=== PATIENT | male | born 2000 | race Caucasian/White ===

== ENCOUNTER 2025-01-12 20:11 | Observation (INO) | payer BC, OTHER ==
[2025-01-12 20:45] LABS: Glucose,Whole Blood >600 mg/dL (70-110)
--- NOTE | 2025-01-12 21:07 | ED ---
General Adult HPI - General Chief complaint: Nausea/Vomiting/Diarrhea Stated complaint: Lethargic,vomiting Time Seen by Provider: 01/12/25 21:05 Source: patient, family, RN notes reviewed Mode of arrival: ambulatory Limitations: no limitations - History of Present Illness Initial comments: 24-year-old male presents to the emergency department for evaluation of nausea and vomiting. Patient notes that symptoms started yesterday. He notes that he has insulin pump was not working appropriately yesterday. He has had high blood sugar readings today. He denies any fever, chills or recent illness. He does endorse nausea and vomiting. He notes feeling weak. Patient endorses palpitations. - Related Data Previous Rx's Medication Instructions Recorded INSULIN LISPRO (HumaLOG) [HumaLOG] 4 unit SQ AC-TID #2 pen 01/13/25 Insulin Glargine (Lantus) [Lantus 12 unit SQ HS #2 pen 01/13/25 Vial] Allergies Allergy/AdvReac Type Severity Reaction Status Date / Time Penicillins Allergy Anaphylaxis Verified 01/13/25 07:51 Review of Systems ROS Statement: Those systems with pertinent positive or pertinent negative responses have been documented in the HPI. ROS Other: All systems not noted in ROS Statement are negative. Past Medical History Past Medical History: Diabetes Mellitus Additional Past Medical History / Comment(s): type 1 DM,insulin pump Past Surgical History: Orthopedic Surgery Past Psychological History: No Psychological Hx Reported Smoking Status: Never smoker Past Alcohol Use History: Occasional Past Drug Use History: None Reported General Exam Limitations: no limitations General appearance: alert, in no apparent distress Head exam: Present: atraumatic, normocephalic, normal inspection Eye exam: Present: normal appearance, PERRL, EOMI. Absent: scleral icterus, conjunctival injection, periorbital swelling ENT exam: Present: mucous membranes dry Respiratory exam: Present: normal lung sounds bilaterally, other (tachypneic). Absent: respiratory distress, wheezes, rales, rhonchi, stridor Cardiovascular Exam: Present: regular rate, normal rhythm, normal heart sounds. Absent: systolic murmur, diastolic murmur, rubs, gallop, clicks GI/Abdominal exam: Present: soft, normal bowel sounds. Absent: distended, tenderness, guarding, rebound, rigid Extremities exam: Present: normal inspection, full ROM, normal capillary refill. Absent: tenderness, pedal edema, joint swelling, calf tenderness Neurological exam: Present: alert, oriented X3 Psychiatric exam: Present: normal affect, normal mood Course Vital Signs 01/12/25 01/12/25 01/12/25 20:40 21:23 23:00 Temperature 97.5 F L 98.2 F Pulse Rate 142 H 114 H 112 H Respiratory 18 20 18 Rate Blood Pressure 128/81 133/81 116/78 O2 Sat by Pulse 97 99 100 Oximetry 01/13/25 01/13/25 01/13/25 01:00 02:00 03:45 Temperature 98.8 F Pulse Rate 104 H 109 H 104 H Respiratory 18 18 Rate Blood Pressure 118/77 113/73 115/67 O2 Sat by Pulse 100 100 98 Oximetry 01/13/25 01/13/25 01/13/25 04:00 05:00 06:00 Temperature 98.3 F Pulse Rate 105 H 105 H 96 Respiratory 16 Rate Blood Pressure 105/63 112/67 99/65 O2 Sat by Pulse 98 99 99 Oximetry 01/13/25 01/13/25 01/13/25 11:06 13:49 16:43 Temperature 98.1 F Pulse Rate 86 87 84 Respiratory 22 18 20 Rate Blood Pressure 107/69 109/68 118/68 O2 Sat by Pulse 98 97 Oximetry Medical Decision Making - Medical Decision Making Was pt. sent in by a medical professional or institution (HIRO Mathis, [employer]STATE E[employer]OMIST, urgent care, hospital, or alf...) When possible be specific @ -No Did you speak to anyone other than the patient for history (EMS, parent, family, police, friend...)? What history was obtained from this source @ -Patient's father provided some history of this patient Did you review nursing and triage notes (agree or disagree)? Why? @ -I reviewed and agree with nursing and triage notes Were old charts reviewed (outside hosp., previous admission, EMS record, old EKG, old radiological studies, urgent care reports/EKG's, alf records)? Report findings @ -No old charts were reviewed Differential Diagnosis (chest pain, altered mental status, abdominal pain women, abdominal pain men, vaginal bleeding, weakness, fever, dyspnea, syncope, headache, dizziness, GI bleed, back pain, seizure, CVA, palpatations, mental health, musculoskeletal)? @ -Differential Weakness: Hypoglycemia, shock, sepsis, hyponatremia, anemia, infection, GA, ETOH, adverse medicine reaction, overdose, stroke, this is not meant to be an all-inclusive list. EKG interpreted by me (3pts min.). @ -EKG@2057 shows sinus tachycardia rate of 126, NC 111, QRS 78, QT/QTc 079147 X-rays interpreted by me (1pt min.). @ -Chest x-ray reveals no acute process CT interpreted by me (1pt min.). @ -None done U/S interpreted by me (1pt. min.). @ -None done What testing was considered but not performed or refused? (CT, X-rays, U/S, labs)? Why? @ -None What meds were considered but not given or refused? Why? @ -None Did you discuss the management of the patient with other professionals (professionals i.e. , PA, REAL ESTATE ECONOMIST, lab, RT, psych nurse, social worker health services, twisting department end finder, teacher, network security officer, therapeutic case manager)? Give summary @ -Management discussed with [facility] by my attending physician Was smoking cessation discussed for >3mins.? @ -No Was critical care preformed (if so, how long)? @ -Yes 35 minutes Were there social determinants of health that impacted care today? How? (Homelessness, low income, unemployed, alcoholism, drug addiction, transportation, low edu. Level, literacy, decrease access to med. care, retirement, rehab)? @ -No Was there de-escalation of care discussed even if they declined (Discuss DNR or withdrawal of care, Hospice)? DNR status @ -No What co-morbidities impacted this encounter? (DM, HTN, Smoking, COPD, CAD, Cancer, CVA, ARF, Chemo, Hep., AIDS, mental health diagnosis, sleep apnea, morbid obesity)? @ -Diabetes mellitus Was patient admitted / discharged? Hospital course, mention meds given and route, prescriptions, significant lab abnormalities, going to OR and other pertinent info. @ -Admitted patient presented to the emergency department for nausea, vomiting, generalized malaise. Patient has a history of type 1 diabetes. Notes that his insulin pump was malfunctioning today. Laboratory studies were obtained which revealed WBC of 28; venous blood gas reveals a pH of 7.09, bicarb of 8. Patient has a sodium 132, potassium 6.1 patient was provided 2 L of lactated Ringer's and started on insulin drip UA shows 4+ glucose, 4+ ketones. Patient did have positive acetone. Electrolyte imbalances improved following fluid and insulin administration. Patient will be admitted to the hospital for DKA. Case discussed with Dr. Lombardi Undiagnosed new problem with uncertain prognosis? @ -No Drug Therapy requiring intensive monitoring for toxicity (Heparin, Nitro, Insuli n, Cardizem)? @ -Insulin drip Were any procedures done? @ -No Diagnosis/symptom? @ -DKA Acute, or Chronic, or Acute on Chronic? @ -Acute Uncomplicated (without systemic symptoms) or Complicated (systemic symptoms)? @ -Complicated Side effects of treatment? @ -No Exacerbation, Progression, or Severe Exacerbation? @ -No Poses a threat to life or bodily function? How? (Chest pain, USA, GA, pneumonia, PE, COPD, DKA, ARF, appy, cholecystitis, CVA, Diverticulitis, Homicidal, Suicidal, threat to staff... and all critical care pts) @ -Yes DKA - Lab Data Result diagrams: 01/12/25 22:25 01/13/25 07:47 Lab Results 01/12/25 01/12/25 01/12/25 Range/Units 20:39 22:10 22:25 WBC 28.81 H (4.50-10.00) 10*3/uL RBC 5.59 (4.40-5.60) 10*6/uL Hgb 16.2 (13.0-17.0) g/dL Hct 48.7 (39.6-50.0) % MCV 87.1 (80.0-97.0) fL MCH 29.0 (27.0-32.0) pg MCHC 33.3 (32.0-37.0) g/dL Plt Count 328 (140-440) 10*3/uL MPV 10.6 (9.5-12.2) fL Immature Gran % (Auto) 1.0 % Neutrophils % 86.8 % Lymphocytes % 7.0 % Monocytes % 5.0 % Eosinophils % 0.0 % Basophils % 0.2 % Immature Gran # 0.30 H (0.00-0.04) 10*3/uL Neutrophils # 24.97 H (1.80-7.70) 10*3/uL Lymphocytes # 2.03 (0.90-5.00) 10*3/uL Monocytes # 1.45 H (0.20-1.00) 10*3/uL Eosinophils # 0.01 L (0.04-0.35) 10*3/uL Basophils # 0.05 (0.00-0.10) 10*3/uL Manual Slide Review Performed RBC Morphology Normal VBG pH (7.31-7.41) VBG pCO2 (37-51) mmHg VBG HCO3 (24-28) mmol/L Sodium (137-145) mmol/L Potassium (3.5-5.1) mmol/L Chloride (98-107) mmol/L Carbon Dioxide (22-30) mmol/L Anion Gap mmol/L BUN (9-20) mg/dL Creatinine (0.66-1.25) mg/dL Est GFR (CKD-EPI)AfAm (>60 ml/min/1.73 sqM) Est GFR (CKD-EPI)NonAf (>60 ml/min/1.73 sqM) Glucose (74-99) mg/dL POC Glucose (mg/dL) >600 H* (70-110) mg/dL POC Glu Dispatcher Radioactive Waste Disposal ID Hough Chante Calcium (8.4-10.2) mg/dL Phosphorus (2.5-4.5) mg/dL Magnesium (1.6-2.3) mg/dL Total Bilirubin (0.2-1.3) mg/dL AST (17-59) U/L ALT (4-49) U/L Alkaline Phosphatase (38-126) U/L Total Protein (6.3-8.2) g/dL Albumin (3.5-5.0) g/dL Amylase (30-110) U/L Lipase (23-300) U/L Urine Color Colorless Urine Appearance Clear (Clear) Urine pH 5.0 (5.0-8.0) Ur Specific [place] 1.021 (1.001-1.035) Urine Protein Negative (Negative) Urine Glucose (UA) 4+ H (Negative) Urine Ketones 4+ H (Negative) Urine Blood Negative (Negative) Urine Nitrite Negative (Negative) Urine Bilirubin Negative (Negative) Urine Urobilinogen <2.0 (<2.0) mg/dL Ur Leukocyte Esterase Negative (Negative) Acetone, Qual (Negative) 01/12/25 01/12/25 01/13/25 Range/Units 22:25 22:25 00:40 WBC (4.50-10.00) 10*3/uL RBC (4.40-5.60) 10*6/uL Hgb (13.0-17.0) g/dL Hct (39.6-50.0) % MCV (80.0-97.0) fL MCH (27.0-32.0) pg MCHC (32.0-37.0) g/dL Plt Count (140-440) 10*3/uL MPV (9.5-12.2) fL Immature Gran % (Auto) % Neutrophils % % Lymphocytes % % Monocytes % % Eosinophils % % Basophils % % Immature Gran # (0.00-0.04) 10*3/uL Neutrophils # (1.80-7.70) 10*3/uL Lymphocytes # (0.90-5.00) 10*3/uL Monocytes # (0.20-1.00) 10*3/uL Eosinophils # (0.04-0.35) 10*3/uL Basophils # (0.00-0.10) 10*3/uL Manual Slide Review RBC Morphology VBG pH 7.09 L* (7.31-7.41) VBG pCO2 26 L (37-51) mmHg VBG HCO3 8 L* (24-28) mmol/L Sodium 132 L (137-145) mmol/L Potassium 6.1 H* (3.5-5.1) mmol/L Chloride 94 L (98-107) mmol/L Carbon Dioxide <5 L* (22-30) mmol/L Anion Gap mmol/L BUN 27 H (9-20) mg/dL Creatinine 1.42 H (0.66-1.25) mg/dL Est GFR (CKD-EPI)AfAm 80 (>60 ml/min/1.73 sqM) Est GFR (CKD-EPI)NonAf 69 (>60 ml/min/1.73 sqM) Glucose 634 H* (74-99) mg/dL POC Glucose (mg/dL) 456 H (70-110) mg/dL POC Glu Dispatcher Radioactive Waste Disposal ID [place] Calcium 10.0 (8.4-10.2) mg/dL Phosphorus 8.6 H (2.5-4.5) mg/dL Magnesium 2.2 (1.6-2.3) mg/dL Total Bilirubin 0.9 (0.2-1.3) mg/dL AST 33 (17-59) U/L ALT 26 (4-49) U/L Alkaline Phosphatase 148 H (38-126) U/L Total Protein 8.1 (6.3-8.2) g/dL Albumin 5.1 H (3.5-5.0) g/dL Amylase 75 (30-110) U/L Lipase 236 (23-300) U/L Urine Color Urine Appearance (Clear) Urine pH (5.0-8.0) Ur Specific [place] (1.001-1.035) Urine Protein (Negative) Urine Glucose (UA) (Negative) Urine Ketones (Negative) Urine Blood (Negative) Urine Nitrite (Negative) Urine Bilirubin (Negative) Urine Urobilinogen (<2.0) mg/dL Ur Leukocyte Esterase (Negative) Acetone, Qual Positive (Negative) 01/13/25 01/13/25 01/13/25 Range/Units 01:51 02:52 03:32 WBC (4.50-10.00) 10*3/uL RBC (4.40-5.60) 10*6/uL Hgb (13.0-17.0) g/dL Hct (39.6-50.0) % MCV (80.0-97.0) fL MCH (27.0-32.0) pg MCHC (32.0-37.0) g/dL Plt Count (140-440) 10*3/uL MPV (9.5-12.2) fL Immature Gran % (Auto) % Neutrophils % % Lymphocytes % % Monocytes % % Eosinophils % % Basophils % % Immature Gran # (0.00-0.04) 10*3/uL Neutrophils # (1.80-7.70) 10*3/uL Lymphocytes # (0.90-5.00) 10*3/uL Monocytes # (0.20-1.00) 10*3/uL Eosinophils # (0.04-0.35) 10*3/uL Basophils # (0.00-0.10) 10*3/uL Manual Slide Review RBC Morphology VBG pH (7.31-7.41) VBG pCO2 (37-51) mmHg VBG HCO3 (24-28) mmol/L Sodium (137-145) mmol/L Potassium (3.5-5.1) mmol/L Chloride (98-107) mmol/L Carbon Dioxide (22-30) mmol/L Anion Gap mmol/L BUN (9-20) mg/dL Creatinine (0.66-1.25) mg/dL Est GFR (CKD-EPI)AfAm (>60 ml/min/1.73 sqM) Est GFR (CKD-EPI)NonAf (>60 ml/min/1.73 sqM) Glucose (74-99) mg/dL POC Glucose (mg/dL) 360 H 291 H (70-110) mg/dL POC Glu Dispatcher Radioactive Waste Disposal ID [id number] HELMS Calcium (8.4-10.2) mg/dL Phosphorus 3.1 (2.5-4.5) mg/dL Magnesium (1.6-2.3) mg/dL Total Bilirubin (0.2-1.3) mg/dL AST (17-59) U/L ALT (4-49) U/L Alkaline Phosphatase (38-126) U/L Total Protein (6.3-8.2) g/dL Albumin (3.5-5.0) g/dL Amylase (30-110) U/L Lipase (23-300) U/L Urine Color Urine Appearance (Clear) Urine pH (5.0-8.0) Ur Specific [place] (1.001-1.035) Urine Protein (Negative) Urine Glucose (UA) (Negative) Urine Ketones (Negative) Urine Blood (Negative) Urine Nitrite (Negative) Urine Bilirubin (Negative) Urine Urobilinogen (<2.0) mg/dL Ur Leukocyte Esterase (Negative) Acetone, Qual (Negative) 01/13/ Range/Units 03:32 WBC (4.50-10.00) 10*3/uL RBC (4.40-5.60) 10*6/uL Hgb (13.0-17.0) g/dL Hct (39.6-50.0) % MCV (80.0-97.0) fL MCH (27.0-32.0) pg MCHC (32.0-37.0) g/dL Plt Count (140-440) 10*3/uL MPV (9.5-12.2) fL Immature Gran % (Auto) % Neutrophils % % Lymphocytes % % Monocytes % % Eosinophils % % Basophils % % Immature Gran # (0.00-0.04) 10*3/uL Neutrophils # (1.80-7.70) 10*3/uL Lymphocytes # (0.90-5.00) 10*3/uL Monocytes # (0.20-1.00) 10*3/uL Eosinophils # (0.04-0.35) 10*3/uL Basophils # (0.00-0.10) 10*3/uL Manual Slide Review RBC Morphology VBG pH (7.31-7.41) VBG pCO2 (37-51) mmHg VBG HCO3 (24-28) mmol/L Sodium 135 L (137-145) mmol/L Potassium 4.6 (3.5-5.1) mmol/L Chloride 105 (98-107) mmol/L Carbon Dioxide 12 L (22-30) mmol/L Anion Gap 18 mmol/L BUN 22 H (9-20) mg/dL Creatinine 0.89 (0.66-1.25) mg/dL Est GFR (CKD-EPI)AfAm >90 (>60 ml/min/1.73 sqM) Est GFR (CKD-EPI)NonAf >90 (>60 ml/min/1.73 sqM) Glucose 277 H (74-99) mg/dL POC Glucose (mg/dL) (70-110) mg/dL POC Glu Dispatcher Radioactive Waste Disposal ID Calcium (8.4-10.2) mg/dL Phosphorus (2.5-4.5) mg/dL Magnesium (1.6-2.3) mg/dL Total Bilirubin (0.2-1.3) mg/dL AST (17-59) U/L ALT (4-49) U/L Alkaline Phosphatase (38-126) U/L Total Protein (6.3-8.2) g/dL Albumin (3.5-5.0) g/dL Amylase (30-110) U/L Lipase (23-300) U/L Urine Color Urine Appearance (Clear) Urine pH (5.0-8.0) Ur Specific [place] (1.001-1.035) Urine Protein (Negative) Urine Glucose (UA) (Negative) Urine Ketones (Negative) Urine Blood (Negative) Urine Nitrite (Negative) Urine Bilirubin (Negative) Urine Urobilinogen (<2.0) mg/dL Ur Leukocyte Esterase (Negative) Acetone, Qual (Negative) Disposition Clinical Impression: DKA (diabetic ketoacidosis) Disposition: ADMITTED IP TO THIS [facility] Condition: Stable Is patient prescribed a controlled substance at d/c from ED?: No
[2025-01-12] MEDS: LACTATED RINGERS 1,000 ML IV SCH (21:39)
[2025-01-12 22:59] LABS: VBG PH 7.09 (7.31-7.41)
[2025-01-12 23:21] LABS: Basophils # (A) 0.05 10*3/uL (0.00-0.10); Basophils % (A) 0.2 %; Eosinophils # (A) 0.01 10*3/uL (0.04-0.35); HCT 48.7 % (39.6-50.0); HGB 16.2 g/dL (13.0-17.0); Lymphocytes # (A) 2.03 10*3/uL (0.90-5.00); MCHC 33.3 g/dL (32.0-37.0); MCV 87.1 fL (80.0-97.0); Mean Platelet Volume 10.6 fL (9.5-12.2); Monocytes # (A) 1.45 10*3/uL (0.20-1.00); Neutrophils # (A) 24.97 10*3/uL (1.80-7.70); Neutrophils % (A) 86.8 %; Platelet Count 328 10*3/uL (140-440); RBC 5.59 10*6/uL (4.40-5.60); RDW 12.4 % (11.5-14.5); WBC 28.81 10*3/uL (4.50-10.00)
[2025-01-12 23:36] LABS: ALT 26 U/L (4-49); African American GFR (CKD) 80 (>60 ml/min/1.73 sqM); Albumin 5.1 g/dL (3.5-5.0); Alkaline Phosphatase 148 U/L (38-126); Blood Urea Nitrogen 27 mg/dL (9-20); Chloride 94 mmol/L (98-107); Lipase 236 U/L (23-300); Non-African American GFR(CKD) 69 (>60 ml/min/1.73 sqM); Sodium 132 mmol/L (137-145); Total Bilirubin 0.9 mg/dL (0.2-1.3); Total Protein 8.1 g/dL (6.3-8.2)
[2025-01-12 23:47] LABS: AST 33 U/L (17-59); Amylase 75 U/L (30-110); Carbon Dioxide <5 mmol/L (22-30); Magnesium 2.2 mg/dL (1.6-2.3); Phosphorus 8.6 mg/dL (2.5-4.5); Potassium 6.1 mmol/L (3.5-5.1)
[2025-01-12 23:51] LABS: Glucose 634 mg/dL (74-99)
[2025-01-12 23:54] LABS: RBC Morphology Normal
[2025-01-13 00:41] LABS: Glucose,Whole Blood 456 mg/dL (70-110)
[2025-01-13] MEDS: INSULIN REGULAR 100 UNIT in SODIUM CHLORIDE 0.9% 100 ML IV SCH (00:53)
[2025-01-13] MEDS: SODIUM CHLORIDE 0.9% 1,000 ML IV SCH ×3 (01:01→14:48)
[2025-01-13 01:53] LABS: Glucose,Whole Blood 360 mg/dL (70-110)
[2025-01-13 02:05] LABS: Appearance,Urine Clear (Clear); Bilirubin,Urine Negative (Negative); Blood,Urine Negative (Negative); Color,Urine Colorless; Glucose,Urine (UA) 4+ (Negative); Leukocyte Esterase,Urine Negative (Negative); Nitrite,Urine Negative (Negative); Protein,Urine Negative (Negative); Specific Gravity,Urine 1.021 (1.001-1.035); Urobilinogen,Urine <2.0 mg/dL (<2.0)
[2025-01-13] MEDS: LACTATED RINGERS 1,000 ML IV SCH (02:18)
[2025-01-13 02:54] LABS: Glucose,Whole Blood 291 mg/dL (70-110)
[2025-01-13 03:07] LABS: Ketones,Urine 4+ (Negative)
--- NOTE | 2025-01-13 03:20 | XR ---
EXAM: XR Chest, 2 Views CLINICAL HISTORY: c/o N/V and hyperglycemia. Hx of type 1 DM. Pt's insulin pump malfunctioning today. Pt's pump turned off and disconnected in triage TECHNIQUE: Frontal and lateral views of the chest. COMPARISON: No relevant prior studies available. FINDINGS: Lungs: Unremarkable. No consolidation. Pleural space: Unremarkable. Mediastinum: Unremarkable. Normal mediastinal contour. Bones/joints: No acute findings. IMPRESSION: No acute findings.
[2025-01-13] MEDS: D5-0.45% NACL WITH KCL 20MEQ/L 1,000 ML IV SCH (03:41)
[2025-01-13 03:54] LABS: Glucose,Whole Blood 237 mg/dL (70-110)
[2025-01-13 04:07] LABS: African American GFR (CKD) >90 (>60 ml/min/1.73 sqM); Anion Gap 18 mmol/L; Blood Urea Nitrogen 22 mg/dL (9-20); Carbon Dioxide 12 mmol/L (22-30); Chloride 105 mmol/L (98-107); Glucose 277 mg/dL (74-99); Non-African American GFR(CKD) >90 (>60 ml/min/1.73 sqM); Potassium 4.6 mmol/L (3.5-5.1); Sodium 135 mmol/L (137-145)
[2025-01-13] MEDS ORDERED: MORPHINE SULFATE 4 MG/ML SYRINGE IV PRN (04:36)
[2025-01-13] MEDS ORDERED: ONDANSETRON 4 MG/2 ML VIAL IVP PRN (04:36)
[2025-01-13] MEDS ORDERED: NALOXONE 0.4 MG/ML 1 ML VIAL IV PRN (04:36)
[2025-01-13 04:57] LABS: Glucose,Whole Blood 223 mg/dL (70-110)
[2025-01-13 05:57] LABS: Glucose,Whole Blood 184 mg/dL (70-110)
[2025-01-13 06:57] LABS: Glucose,Whole Blood 131 mg/dL (70-110)
[2025-01-13 07:56] LABS: Glucose,Whole Blood 120 mg/dL (70-110)
[2025-01-13 08:36] LABS: African American GFR (CKD) >90 (>60 ml/min/1.73 sqM); Anion Gap 9 mmol/L; Blood Urea Nitrogen 20 mg/dL (9-20); Carbon Dioxide 18 mmol/L (22-30); Chloride 110 mmol/L (98-107); Glucose 121 mg/dL (74-99); Non-African American GFR(CKD) >90 (>60 ml/min/1.73 sqM); Potassium 4.2 mmol/L (3.5-5.1); Sodium 137 mmol/L (137-145)
[2025-01-13 09:26] LABS: Glucose,Whole Blood 91 mg/dL (70-110)
[2025-01-13 10:52] LABS: Glucose,Whole Blood 122 mg/dL (70-110)
--- NOTE | 2025-01-13 12:47 | P.HPIM ---
History of Present Illness 24-year-old male came in with complaints of nausea vomiting abdominal discomfort found to have leukocytosis and is in DKA patient has malfunctioning pump. Patient was on DKA protocol his anion gap resolved at this time. Patient has s ignificant electrolyte abnormalities secondary to DKA which including hyperkalemia hyponatremia. All of which resolved at this time patient does not have any evidence of infection at this time despite of leukocytosis. REVIEW OF SYSTEMS: All other systems are negative except those mentioned in the HPI PHYSICAL EXAMINATION: GENERAL: The patient is alert and oriented x3, not in any acute distress. Well developed, well nourished. HEENT: Pupils are round and equally reacting to light. EOMI. No scleral icterus. No conjunctival pallor. Normocephalic, atraumatic. No pharyngeal erythema. No t hyromegaly. CARDIOVASCULAR: S1 and S2 present. No murmurs, rubs, or gallops. PULMONARY: Chest is clear to auscultation, no wheezing or crackles. ABDOMEN: Soft, nontender, nondistended, normoactive bowel sounds. No palpable organomegaly. MUSCULOSKELETAL: No joint swelling or deformity. EXTREMITIES: No cyanosis, clubbing, or pedal edema. NEUROLOGICAL: Gross neurological examination did not reveal any focal deficits. SKIN: No rashes. Assessment and plan -Diabetic ketoacidosis secondary to malfunctioning pump, noncompliance with medications.. Patient's DKA resolved at this time electrolyte abnormality improved. Able to contact his control room technician patient apparently uses 24 total units of insulin. Patient will be discharged on 12 units of long-acting insulin and 40 units of Premeal insulin and follow-up with his control room technician as an outpatient. - Hyperosmolar hyponatremia secondary to elevated blood sugars - Hyperkalemia secondary to diabetic ketoacidosis - Leukocytosis reactive secondary to DKA symptoms of nausea vomiting secondary to DKA all of which resolved at this time. Patient will be discharged today prescriptions for long-acting insulin and Premeal insulin were provided until he is seen by his control room technician. Past Medical History Past Medical History: Diabetes Mellitus Additional Past Medical History / Comment(s): type 1 DM,insulin pump Past Surgical History: Orthopedic Surgery Past Psychological History: No Psychological Hx Reported Smoking Status: Never smoker Past Alcohol Use History: Occasional Past Drug Use History: None Reported Medications and Allergies Home Medications Medication Instructions Recorded Confirmed Type INSULIN LISPRO (HumaLOG) [HumaLOG] 4 unit SQ AC-TID #2 pen 01/13/25 Rx Insulin Glargine (Lantus) [Lantus 12 unit SQ HS #2 pen 01/13/25 Rx Vial] Allergies Allergy/AdvReac Type Severity Reaction Status Date / Time Penicillins Allergy Anaphylaxis Verified 01/13/25 07:51 Physical Exam Vitals: Vital Signs Temp Pulse Resp BP Pulse Ox 01/13/25 11:06 86 22 107/69 98 01/13/25 06:00 98.3 F 96 16 99/65 99 01/13/25 05:00 105 H 112/67 99 01/13/25 04:00 105 H 105/63 98 01/13/25 03:45 98.8 F 104 H 18 115/67 98 01/13/25 02:00 109 H 113/73 100 01/13/25 01:00 104 H 18 118/77 100 01/12/25 23:00 112 H 18 116/78 100 01/12/25 21:23 98.2 F 114 H 20 133/81 99 01/12/25 20:40 97.5 F L 142 H 18 128/81 97 Intake and Output 01/12/25 01/13/25 01/13/25 22:59 06:59 14:59 Intake Total 40.249 14.067 Output Total 600 Balance -559.751 14.067 Intake: Intake, IV Titration 40.249 14.067 Amount Insulin Regular 100 unit 40.249 14.067 In Sodium Chloride 0.9% 100 ml @ 0.1 UNITS/KG/HR 5.956 mls/hr IV .[id number] ON LICENSE OF [facility] Rx#:[id number] Output: Urine 600 Other: # Voids 1 Weight 58.967 kg Results CBC & Chem 7: 01/12/25 22:25 01/13/25 07:47 Labs: Abnormal Lab Results - Last 24 Hours (Table) 01/12/25 01/12/25 01/12/25 Range/Units 20:39 22:10 22:25 WBC 28.81 H (4.50-10.00) 10*3/uL Immature Gran # 0.30 H (0.00-0.04) 10*3/uL Neutrophils # 24.97 H (1.80-7.70) 10*3/uL Monocytes # 1.45 H (0.20-1.00) 10*3/uL Eosinophils # 0.01 L (0.04-0.35) 10*3/uL VBG pH (7.31-7.41) VBG pCO2 (37-51) mmHg VBG HCO3 (24-28) mmol/L Sodium (137-145) mmol/L Potassium (3.5-5.1) mmol/L Chloride (98-107) mmol/L Carbon Dioxide (22-30) mmol/L BUN (9-20) mg/dL Creatinine (0.66-1.25) mg/dL Glucose (74-99) mg/dL POC Glucose (mg/dL) >600 H* (70-110) mg/dL Phosphorus (2.5-4.5) mg/dL Alkaline Phosphatase (38-126) U/L Albumin (3.5-5.0) g/dL Urine Glucose (UA) 4+ H (Negative) Urine Ketones 4+ H (Negative) 01/12/25 01/12/25 01/13/25 Range/Units 22:25 22:25 00:40 WBC (4.50-10.00) 10*3/uL Immature Gran # (0.00-0.04) 10*3/uL Neutrophils # (1.80-7.70) 10*3/uL Monocytes # (0.20-1.00) 10*3/uL Eosinophils # (0.04-0.35) 10*3/uL VBG pH 7.09 L* (7.31-7.41) VBG pCO2 26 L (37-51) mmHg VBG HCO3 8 L* (24-28) mmol/L Sodium 132 L (137-145) mmol/L Potassium 6.1 H* (3.5-5.1) mmol/L Chloride 94 L (98-107) mmol/L Carbon Dioxide <5 L* (22-30) mmol/L BUN 27 H (9-20) mg/dL Creatinine 1.42 H (0.66-1.25) mg/dL Glucose 634 H* (74-99) mg/dL POC Glucose (mg/dL) 456 H (70-110) mg/dL Phosphorus 8.6 H (2.5-4.5) mg/dL Alkaline Phosphatase 148 H (38-126) U/L Albumin 5.1 H (3.5-5.0) g/dL Urine Glucose (UA) (Negative) Urine Ketones (Negative) 01/13/25 01/13/25 01/13/25 Range/Units 01:51 02:52 03:32 WBC (4.50-10.00) 10*3/uL Immature Gran # (0.00-0.04) 10*3/uL Neutrophils # (1.80-7.70) 10*3/uL Monocytes # (0.20-1.00) 10*3/uL Eosinophils # (0.04-0.35) 10*3/uL VBG pH (7.31-7.41) VBG pCO2 (37-51) mmHg VBG HCO3 (24-28) mmol/L Sodium 135 L (137-145) mmol/L Potassium (3.5-5.1) mmol/L Chloride (98-107) mmol/L Carbon Dioxide 12 L (22-30) mmol/L BUN 22 H (9-20) mg/dL Creatinine (0.66-1.25) mg/dL Glucose 277 H (74-99) mg/dL POC Glucose (mg/dL) 360 H 291 H (70-110) mg/dL Phosphorus (2.5-4.5) mg/dL Alkaline Phosphatase (38-126) U/L Albumin (3.5-5.0) g/dL Urine Glucose (UA) (Negative) Urine Ketones (Negative) 01/13/25 01/13/25 01/13/25 Range/Units 03:53 04:56 05:53 WBC (4.50-10.00) 10*3/uL Immature Gran # (0.00-0.04) 10*3/uL Neutrophils # (1.80-7.70) 10*3/uL Monocytes # (0.20-1.00) 10*3/uL Eosinophils # (0.04-0.35) 10*3/uL VBG pH (7.31-7.41) VBG pCO2 (37-51) mmHg VBG HCO3 (24-28) mmol/L Sodium (137-145) mmol/L Potassium (3.5-5.1) mmol/L Chloride (98-107) mmol/L Carbon Dioxide (22-30) mmol/L BUN (9-20) mg/dL Creatinine (0.66-1.25) mg/dL Glucose (74-99) mg/dL POC Glucose (mg/dL) 237 H 223 H 184 H (70-110) mg/dL Phosphorus (2.5-4.5) mg/dL Alkaline Phosphatase (38-126) U/L Albumin (3.5-5.0) g/dL Urine Glucose (UA) (Negative) Urine Ketones (Negative) 01/13/25 01/13/25 01/13/25 Range/Units 06:55 07:47 07:55 WBC (4.50-10.00) 10*3/uL Immature Gran # (0.00-0.04) 10*3/uL Neutrophils # (1.80-7.70) 10*3/uL Monocytes # (0.20-1.00) 10*3/uL Eosinophils # (0.04-0.35) 10*3/uL VBG pH (7.31-7.41) VBG pCO2 (37-51) mmHg VBG HCO3 (24-28) mmol/L Sodium (137-145) mmol/L Potassium (3.5-5.1) mmol/L Chloride 110 H (98-107) mmol/L Carbon Dioxide 18 L (22-30) mmol/L BUN (9-20) mg/dL Creatinine (0.66-1.25) mg/dL Glucose 121 H (74-99) mg/dL POC Glucose (mg/dL) 131 H 120 H (70-110) mg/dL Phosphorus (2.5-4.5) mg/dL Alkaline Phosphatase (38-126) U/L Albumin (3.5-5.0) g/dL Urine Glucose (UA) (Negative) Urine Ketones (Negative) 01/13/25 Range/Units 10:50 WBC (4.50-10.00) 10*3/uL Immature Gran # (0.00-0.04) 10*3/uL Neutrophils # (1.80-7.70) 10*3/uL Monocytes # (0.20-1.00) 10*3/uL Eosinophils # (0.04-0.35) 10*3/uL VBG pH (7.31-7.41) VBG pCO2 (37-51) mmHg VBG HCO3 (24-28) mmol/L Sodium (137-145) mmol/L Potassium (3.5-5.1) mmol/L Chloride (98-107) mmol/L Carbon Dioxide (22-30) mmol/L BUN (9-20) mg/dL Creatinine (0.66-1.25) mg/dL Glucose (74-99) mg/dL POC Glucose (mg/dL) 122 H (70-110) mg/dL Phosphorus (2.5-4.5) mg/dL Alkaline Phosphatase (38-126) U/L Albumin (3.5-5.0) g/dL Urine Glucose (UA) (Negative) Urine Ketones (Negative)
--- NOTE | 2025-01-13 12:48 | P.DS ---
Providers Date of admission: 01/13/25 03:40 Attending physician: Miguel Lea Primary care physician: Stated None Hospital Course: 24-year-old male came in with complaints of nausea vomiting abdominal discomfort found to have leukocytosis and is in DKA patient has malfunctioning pump. Patient was on DKA protocol his anion gap resolved at this time. Patient has significant electrolyte abnormalities secondary to DKA which including hyperkalemia hyponatremia. All of which resolved at this time patient does not have any evidence of infection at this time despite of leukocytosis. REVIEW OF SYSTEMS: All other systems are negative except those mentioned in the HPI PHYSICAL EXAMINATION: GENERAL: The patient is alert and oriented x3, not in any acute distress. Well developed, well nourished. HEENT: Pupils are round and equally reacting to light. EOMI. No scleral icterus. No conjunctival pallor. Normocephalic, atraumatic. No pharyngeal erythema. No thyromegaly. CARDIOVASCULAR: S1 and S2 present. No murmurs, rubs, or gallops. PULMONARY: Chest is clear to auscultation, no wheezing or crackles. ABDOMEN: Soft, nontender, nondistended, normoactive bowel sounds. No palpable organomegaly. MUSCULOSKELETAL: No joint swelling or deformity. EXTREMITIES: No cyanosis, clubbing, or pedal edema. NEUROLOGICAL: Gross neurological examination did not reveal any focal deficits. SKIN: No rashes. Assessment and plan -Diabetic ketoacidosis secondary to malfunctioning pump, noncompliance with medications.. Patient's DKA resolved at this time electrolyte abnormality improved. Able to contact his commercial green building architect patient apparently uses 24 total units of insulin. Patient will be discharged on 12 units of long-acting insulin and 40 units of Premeal insulin and follow-up with his commercial green building architect as an outpatient. - Hyperosmolar hyponatremia secondary to elevated blood sugars - Hyperkalemia secondary to diabetic ketoacidosis - Leukocytosis reactive secondary to DKA symptoms of nausea vomiting secondary to DKA all of which resolved at this time. Patient will be discharged today prescriptions for long-acting insulin and Premeal insulin were provided until he is seen by his commercial green building architect. Patient Condition at Discharge: Stable Plan - Discharge Summary New Discharge Prescriptions: New Insulin Glargine (Lantus) [Lantus Vial] 12 unit SQ HS #2 pen INSULIN LISPRO (HumaLOG) [HumaLOG] 4 unit SQ AC-TID #2 pen Discharge Medication List INSULIN LISPRO (HumaLOG) [HumaLOG] 4 unit SQ AC-TID #2 pen 01/13/25 [Rx] Insulin Glargine (Lantus) [Lantus Vial] 12 unit SQ HS #2 pen 01/13/25 [Rx] Follow up Appointment(s)/Referral(s): Patrice Noble MD [STAFF PHYSICIAN] - 1 Week None,Stated [Primary Care Provider] - 1-2 days Discharge Disposition: HOME SELF-CARE
[2025-01-13] MEDS: INSULIN GLARGINE (LANTUS) 100 UNIT/ML SYR SQ ONE (13:41)
[2025-01-13 13:44] LABS: Glucose,Whole Blood 111 mg/dL (70-110)
[2025-01-13] MEDS: PANTOPRAZOLE 40 MG/10 ML VIAL IV SCH (13:44)
[2025-01-13 16:11] LABS: Glucose,Whole Blood 235 mg/dL (70-110)
[2025-01-13] MEDS: INSULIN LISPRO (HumaLOG) 100 UNIT/ML 10 mL VL SQ SCH (16:35)
[2025-01-13 16:51] VITALS: BP 118/68; PULSE 84; RESP 20; TEMP 98.1
[2025-01-14] MEDS ORDERED: D5-0.45% NACL WITH KCL 20MEQ/L 1,000 ML IV SCH (03:01)
[2025-01-14] MEDS ORDERED: INSULIN GLARGINE (LANTUS) 100 UNIT/ML SYR SQ SCH (21:00)
== END 2025-01-13 17:40 | disposition home or self-care (01) ==
LOC: EC 20:11 → 3SCARD 01-13 03:40 → INTOOBSV 01-13 03:40 → 3SCARD 01-13 12:15
PROVIDERS: ADMIT Hospitalist; ATTEND Hospitalist
DX: T85.694A Other mechanical complication of insulin pump, initial encounter (principal); E10.10 Type 1 diabetes mellitus with ketoacidosis without coma; Y82.8 Other medical devices associated with adverse incidents; E87.1 Hypo-osmolality and hyponatremia; E87.5 Hyperkalemia; D72.829 Elevated white blood cell count, unspecified; Z91.148 Patient's other noncompliance with medication regimen for other reason; Z79.4 Long term (current) use of insulin; Z88.0 Allergy status to penicillin
CPT/HCPCS: 96365; 96366; 96375; 99291; 36415 ×2; 93005; 80051; 80053; 82150; 82565; 82803; 82009; 83690; 83735; 84100 ×2; 82947; 84520; 85025; 81003; 71046; G0378; J2470; 96374